=== PATIENT | female | born 1980 | race Caucasian/White ===

== ENCOUNTER 2022-06-24 05:32 | Emergency (ER) | payer OTHER, SELFPAY ==
--- NOTE | ~2022-06-24 | CT_ITS ---
EXAMINATION: CT abdomen pelvis wo con DATE: 06/24/2022 06:24 INDICATION: Nephrolithiasis presenting with flank pain TECHNIQUE: Computed tomography (CT) of the abdomen and pelvis was performed without intravenous contr ast. Automated exposure control and iterative reconstruction technique were employed. The dose-length product was 305.49 mGy-cm. COMPARISON: None FINDINGS: Lung bases are clear. Heart size is normal. No pericardial or pleural effusion. Liver, gallbladder, s pleen, pancreas, bilateral adrenal glands and left kidney are normal. There 3 stones in the left kidn ey measuring up to 3 mm. There is also mild to moderate right hydroureteronephrosis 2 there are coupl e T2-3 millimeter calcifications the expected location of the distalmost right ureter one of which li koko represents the obstructing stone. The other likely represents one of a few phleboliths in the ri ght hemipelvis. Bladder is normal. Retroverted uterus and bilateral adnexa are unremarkable. Small am ount of likely physiologic free fluid in the cul-de-sac. No pathologically enlarged abdominal or pelv ic lymphadenopathy. Bones are unremarkable. IMPRESSION: 1. Right nephrolithiasis with 2-3 mm obstructing stone at the distalmost right ureter with mild to mo derate right hydroureteronephrosis. Reviewed, dictated and finalized at location A. IMPRESSION: 1. Right nephrolithiasis with 2-3 mm obstructing stone at the distalmost right ureter with mild to moderate right hydroureteronephrosis.
[2022-06-24 05:39] VITALS: BP 132/84; PULSE 90; RESP 18; O2SAT 100
[2022-06-24 05:52] LABS: Basophils Percent Auto 0.7 % (0.2-1.2); Eosinophils Absolute Auto 0.2 K/mm3 (0-0.3); Hematocrit 43.3 % (37.0-47.0); Hemoglobin 14.3 g/dL (12.0-15.0); Immature Granulocyte Absolute 0.01 K/mm3 (0.00-0.031); Immature Granulocyte Percent A 0.2 % (0-0.5); Lymphocytes Absolute Auto 1.86 K/mm3 (0.9-3.2); Lymphocytes Percent Auto 33.3 % (18.3-44.2); Mean Corpuscular Hemoglobin 29.1 pg (26-34); Mean Corpuscular Volume 88.2 fl (80-100); Mean Platelet Volume 10.6 fl (7.4-10.4); Monocytes Absolute Auto 0.5 K/mm3 (0.1-0.6); Monocytes Percent Auto 9.7 % (2.6-8.5); Neutrophils Percent Auto 53.1 % (45.5-73.1); Platelet Count Result 224 k/mm3 (150-375); Red Blood Count 4.91 M/mm3 (4.2-5.4); Red Cell Distribution Width 13.2 % (11.5-14.5); White Blood Count 5.6 K/mm3 (4.5-10.0)
[2022-06-24 05:56] LABS: Appearance Urine Clear (Clear); Bilirubin Urine Negative (Negative); Blood Urine 1+ (Negative); Color Urine Yellow (Yellow); Glucose Urine UA Negative (Negative); Ketones Urine Negative (Negative); Leukocyte Esterase Ur Negative LEU/UL (Negative); Nitrate Urine Negative (Negative); Protein Urine Negative (Negative); Urobilinogen Urine 0.2 mg/dL (<2.0)
[2022-06-24] MEDS: ONDANSETRON INJ 4 MG/2 ML VIAL IV PUSH (05:58)
[2022-06-24] MEDS: SODIUM CHLORIDE 0.9% IV 1,000 ML 999 ML IV CONT (05:58)
[2022-06-24] MEDS: HYDROmorphone HCL INJ (*CRX) 1 MG/ML SYR IV PUSH (05:59)
[2022-06-24 06:01] LABS: Alanine Aminotransferase 17 U/L (6-35); Albumin Level 4.6 g/dL (3.5-5.1); Alkaline Phosphatase 37 U/L (38-126); Anion Gap 12 mmol/L (8-16); Aspartate Amino Transferase 18 U/L (14-36); Bilirubin,Total 0.3 mg/dL (0.2-1.3); Blood Urea Nitrogen 15 mg/dL (7-17); Calcium 9.2 mg/dL (8.4-10.2); Carbon Dioxide 24 mmol/L (22-30); Chloride 103 mmol/L (98-107); Estimated CRCL calculation 73 ml/min; Estimated Glomerular Filt Rate > 60; Glucose 124 mg/dL (65-110); Sodium 139 mmol/L (137-145)
[2022-06-24 06:02] LABS: Bacteria Urine Trace /hpf; Mucus Urine Rare /lpf; RBC Urine 21-50 /hpf (0-2); Squamous Epithelial Cell Urine Rare /hpf (Few); WBC Urine 0-3 /hpf
[2022-06-24 06:09] LABS: Add Urine Microscopic? YES
--- NOTE | 2022-06-24 06:11 | ED.GENADULT ---
HPI - General Adult General Chief complaint: Urogenital-Female Stated complaint: Kidney stone Time Seen by Provider: 06/24/22 05:49 History of Present Illness HPI narrative: Patient a 42-year-old female who presents the emergency department with chief complaint of flank pain. Patient reports she has history of kidney stones and recently passed 2 stones. Patient states that tonight she suddenly started having pain in her flank reports that she is not able to get comfortable in any position reports she took a Flomax and has not had improvement. Related Data Allergies Allergy/AdvReac Type Severity Reaction Status Date / Time promethazine [From Phenergan] Allergy Unknown Verified 06/24/22 05:39 Review of Systems Review of Systems: A 10 system review of systems was completed on the patient and is negative except for what is stated in the HPI. Nursing and ancillary documentation was reviewed. Exam Narrative: GENERAL: Well-appearing, well-nourished, and in acute pain distress. HEAD: Normocephalic, atraumatic. EYES: PERRLA and EOMI. ENT: Nares clear, no rhinorrhea or epistaxis. Mucous membranes moist. NECK: Supple. CHEST: Clear to auscultation. No respiratory distress. HEART: Regular rate and rhythm. No murmur heard. Normal peripheral pulses. ABDOMEN: Soft, nontender, nondistended, normal active bowel sounds. EXTREMITIES: Normal range of motion. No edema. SKIN: Warm, dry, no rash. NEURO: No focal deficits. Alert and oriented x3. PSYCH: Normal mood and affect. Course Vital Signs Vital signs: Vital Signs Pulse Rate 90 06/24/22 05:39 Respiratory Rate 18 06/24/22 05:39 Blood Pressure 132/84 06/24/22 05:39 Pulse Oximetry 100 06/24/22 05:39 Pulse Rate 90 06/24/22 05:39 Respiratory Rate 18 06/24/22 05:39 Blood Pressure 132/84 06/24/22 05:39 Pulse Oximetry 100 06/24/22 05:39 Medical Decision Making Vital Signs Vital Signs: Vital Signs Pulse Rate 90 06/24/22 05:39 Respiratory Rate 18 06/24/22 05:39 Blood Pressure 132/84 06/24/22 05:39 Pulse Oximetry 100 06/24/22 05:39 Pulse Rate 90 06/24/22 05:39 Respiratory Rate 18 06/24/22 05:39 Blood Pressure 132/84 06/24/22 05:39 Pulse Oximetry 100 06/24/22 05:39 Lab Data Result diagrams: 06/24/22 05:44 06/24/22 05:44 Labs: Lab Results 06/24/22 06/24/22 06/24/22 Range/Units 05:44 05:44 05:44 WBC 5.6 (4.5-10.0) K/mm3 RBC 4.91 (4.2-5.4) M/mm3 Hgb 14.3 (12.0-15.0) g/dL Hct 43.3 (37.0-47.0) % MCV 88.2 (80-100) fl MCH 29.1 (26-34) pg MCHC 33.0 (32-36) g/dl RDW 13.2 (11.5-14.5) % Plt Count 224 (150-375) k/mm3 MPV 10.6 H (7.4-10.4) fl Immature Gran % (Auto) 0.2 (0-0.5) % Neut % (Auto) 53.1 (45.5-73.1) % Lymph % (Auto) 33.3 (18.3-44.2) % Victoria % (Auto) 9.7 H (2.6-8.5) % Eos % (Auto) 3.0 (0-4.4) % Baso % (Auto) 0.7 (0.2-1.2) % Lymph # (Auto) 1.86 (0.9-3.2) K/mm3 Victoria # (Auto) 0.5 (0.1-0.6) K/mm3 Eos # (Auto) 0.2 (0-0.3) K/mm3 Baso # (Auto) 0.0 (0.0-0.1) K/mm3 Abs Immat Gran (auto) 0.01 (0.00-0.031) K/mm3 Absolute Neuts (auto) 3.0 (1.3-6.7) K/mm3 Absolute Nucleated RBC 0.0 (0.0-0.012) K/mm3 Nucleated RBC % 0.0 (0.0-0.2) % Sodium 139 (137-145) mmol/L Potassium 4.0 (3.4-5.0) mmol/L Chloride 103 (98-107) mmol/L Carbon Dioxide 24 (22-30) mmol/L Anion Gap 12 (8-16) mmol/L BUN 15 (7-17) mg/dL Creatinine 0.80 (0.7-1.0) mg/dL Estim Creat Clear Calc 73 ml/min Estimated GFR > 60 (59 - ) Glucose 124 H (65-110) mg/dL Calcium 9.2 (8.4-10.2) mg/dL Total Bilirubin 0.3 (0.2-1.3) mg/dL AST 18 (14-36) U/L ALT 17 (6-35) U/L Alkaline Phosphatase 37 L (38-126) U/L Total Protein 8.0 (6.3-8.2) g/dL Albumin 4.6 (3.5-5.1) g/dL Urine Color Yellow (Yellow) Urine Appearance Clear (Clear)
[2022-06-24 07:21] VITALS: BP 111/61; PULSE 74; RESP 16; O2SAT 99
--- NOTE | 2022-06-24 07:24 | PC.NURSE ---
ALFREDO Nieto has no questions on report at this time.
== END 2022-06-24 07:32 | disposition home or self-care (01) ==
PROVIDERS: Emergency Provider Emergency Medicine; PCP Family Medicine
DX: N13.2 Hydronephrosis with renal and ureteral calculous obstruction (principal)
CPT/HCPCS: 36415; 74176; 80053; 81001; 81025; 85025; 96361; 96374; 96375; 99284; J1170; J2405; J7030

== ENCOUNTER 2022-07-11 10:31 | Outpatient (CLI) | payer OTHER, SELFPAY ==
--- NOTE | ~2022-07-11 | XR_ITS ---
EXAM: XR abdomen/kub 1V DATE: 07/11/2022 10:55 HISTORY: BILATERAL KIDNEY STONES FU . COMPARISON: CT abdomen and pelvis 06/24/2022. FINDINGS: Normal bowel gas pattern. No organomegaly. Stable right upper pole nephrolith. Right lower pole stone in the distal right ureteral stone are not confidently visualized. Pelvic phleboliths. Re gional bones and soft tissues normal for age. IMPRESSION: Distal right ureteral stone is not confidently visualized radiographically, and may have passed or be obscured by summation artifact. Right nephrolithiasis. Reviewed, dictated and finalized at location K. IMPRESSION: Distal right ureteral stone is not confidently visualized radiograp hically, and may have passed or be obscured by summation artifact. Right nephro lithiasis.
== END 2022-07-11 10:32 | disposition home or self-care (01) ==
PROVIDERS: PCP Family Medicine; Visit Provider Urology
DX: N20.0 Calculus of kidney (principal)
CPT/HCPCS: 74018

== ENCOUNTER 2024-12-30 08:21 | Outpatient (CLI) | payer OTHER, SELFPAY ==
--- NOTE | ~2024-12-30 | XR_ITS ---
XR hip RT 2V w AP pelvis Ordering provider: Rohit Mckeon MD History: . M25.551 - Pain in right hip . Comparison: None. FINDINGS: BONES: No acute fracture or dislocation. HIP JOINT SPACES: Normal. SACROILIAC JOINT SPACES/LUMBAR SPINE: The sacroiliac joint spaces are normal. Normal visualized lower lumbar spine. PUBIC SYMPHYSIS: Normal. SOFT TISSUES: Normal. IMPRESSION: No acute osseous abnormality pelvis and right hip. Reviewed, dictated and finalized at location A.
== END 2024-12-30 08:22 | disposition home or self-care (01) ==
LOC: MICIMG 08:22
PROVIDERS: PCP Family Medicine; Visit Provider Family Medicine
DX: M25.551 Pain in right hip (principal)
CPT/HCPCS: 73502

== ENCOUNTER 2025-02-11 11:00 | Outpatient (CLI) | payer OTHER, SELFPAY ==
[2025-02-11 11:38] LABS: Basophils Percent Auto 0.6 % (0.2-1.2); Eosinophils Absolute Auto 0.1 K/mm3 (0-0.3); Eosinophils Percent Auto 1.2 % (0-4.4); Immature Granulocyte Absolute 0.02 K/mm3 (0.00-0.031); Immature Granulocyte Percent A 0.3 % (0-0.5); Lymphocytes Absolute Auto 1.34 K/mm3 (0.9-3.2); Lymphocytes Percent Auto 20.2 % (18.3-44.2); Mean Corpuscular HGB Conc 31.7 g/dl (32-36); Mean Corpuscular Hemoglobin 28.1 pg (26-34); Mean Corpuscular Volume 88.7 fl (80-100); Mean Platelet Volume 10.7 fl (7.4-10.4); Monocytes Absolute Auto 0.5 K/mm3 (0.1-0.6); Neutrophils Absolute Auto 4.6 K/mm3 (1.3-6.7); Neutrophils Percent Auto 69.7 % (45.5-73.1); Platelet Count Result 229 k/mm3 (150-375); Red Blood Count 4.62 M/mm3 (4.2-5.4); Red Cell Distribution Width 13.5 % (11.5-14.5); White Blood Count 6.6 K/mm3 (4.5-10.0)
[2025-02-11 11:47] LABS: Hemoglobin A1C 5.1 % (<5.7)
[2025-02-11 11:53] LABS: Alanine Aminotransferase 18 U/L (6-35); Albumin Level 4.3 g/dL (3.5-5.1); Alkaline Phosphatase 43 U/L (38-126); Anion Gap 7 mmol/L (4-12); Aspartate Amino Transferase 22 U/L (14-36); Bilirubin,Total 0.4 mg/dL (0.2-1.3); Blood Urea Nitrogen 26 mg/dL (7-17); Calcium 9.4 mg/dL (8.4-10.2); Carbon Dioxide 29 mmol/L (22-30); Chloride 100 mmol/L (98-107); Cholesterol 191 mg/dL (0-200); Estimated Glomerular Filt Rate > 60; Glucose 133 mg/dL (65-110); HDL Direct 80 mg/dL; Potassium 4.3 mmol/L (3.4-5.0); Sodium 136 mmol/L (137-145); Triglycerides 45 mg/dL (<150)
--- OUTSIDE RECORDS SUMMARY | 2025-02-11 11:53 | XMS_ITS | Continuity of Care Document ---
Author Organization [facility] e Address [address] [place] [address] Phone Care Team Providers Care Primary School Teacher Name Role Phone Cherelle RANDALL, Lucien Unavailable Unavailable Allergies, Adverse Reactions, Alerts Substance Reaction Status Criticality No Known allergies Medications Medication Instructions Dosage Effective Dates (start - stop) Status Comments Visine 0.05 % Eye Drops PRN - Ac tive Vigamox 0.5 % Eye Drops 1gtt OS Q1H - Active Procedures Procedure Date Offic/outpt E&m Estab Minor 10 11 Offic/outpt E&m Estab Minor 10 11 New Patient; Level 2 Advance Directives Directive Yes / No Effective Date File Name No Information Encounters Encounter Description Practice Location Reason(s) For Visit Diagnoses Date Provider Providers Copied on Encounter [facility], [address], [place], [place], [id number], tel:[phone] [facility] No Information 1 Cherelle Mcgraw. [address], [place], [place], [id number] , [place]. tel:[phone] Offic/outpt E&m Estab Minor 10 [facility], [address], [place], [place], [id number], tel:[phone] [facility] corneal ulcer OS (chief complaint) Marginal Corneal Ulcer Aug-0 1 Ju[address] Muro. [address], [place], [place], [id number] , [place]. tel: [phone] Offic/outpt E&m Estab Minor 10 [facility], [address], [place], [place], [id number], tel:[phone] [facility] f/u on corneal ulcer OS (chief complaint) Marginal Corneal Ulcer Oct-2 1 Juventino Muro. [address], [place], [place], [id number] , [place]. tel: [phone] New Patient; Level 2 [facility], [address], [place], [place], [id number], [place] tel:[phone] [facility] scratchiness (chief complaint) Marginal Corneal Ulcer Oct-2 1 Juventino Muro. [address], [place], [place], [id number] , [place]. tel: [phone] Family History Family Member Type Diagnosis Age At Onset Problem (finding) Family history of Heart Disease Problem (finding) Family history of Diabe justino mellitus Payers Payer name Insurance type Covered constitution party ID Authoriza tion(s) No Information Social History Type Description Quantity Date Captured Comments Sex Female Smoking Status No Information Chief Complaint And Reason For Visit No Information Reason For Referral Reason For Referral No Information History Of Present Illness Encounter Date Complaint History Of Prese nt Illness No Information Functional Status Date Functional Assessmen t No Information Instructions Date Instruction Additional Infor mation - Return in PRN any pain, reness, or dcrease Va. KCP Related to Corneal Ulcer Corneal Ulcer, OS - resolved - stop gtts., can resume CL wear with a new pair in 3 days Related to Corneal Ulcer Corneal Ulcer, OS - taper Vigamox Q1H throughout day and Q2H through the night and over the weekend. Will discuss CL wear nexr visit if K has improved. Related to Corneal Ulcer - Return in 3-4 days for Follow-up Visit, with Dr. Jina Jauregui /scribed by [facility] Related to Corneal Ulcer - Return in 1 day fo r Follow-up Visit, with Dr. Jina Jauregui /scribed by . Related to Corneal Ulcer Corneal Ulcer, OS - Pt will start Vigamox OS Q1H around the clock. No CL wear. Zymaxid gtt placed in office today. Related to Corneal Ulcer Assessments Type Assessment Date No Information Patient Care Teams Name Effective Dates (start - stop) Status Members No Information
--- OUTSIDE RECORDS SUMMARY | 2025-02-11 11:53 | XMS_ITS | Clinical Summary ---
Author Organization [facility] Address [address] [place] [id number] Care Team Providers Care Supervisor Treating And Pumping Name Role Phone Unavailable Primary Care Provider Unavailabl e Social History Tobacco Use Types Packs/Day Years Used Date Smoking Tobacco: Never Assessed Comments Unknown Sex and Gender Information Value Date Recorded Sex Assigned at Not on file Legal Sex Female 6:31 PM CDT Gender Identity Not on file Sexual Orientation Not on file Plan of Treatment Health Maintenance Due Date Last Done Comments Cervical Cancer Screening Pa p Smear (Age 30 to 64) Every 3 Years 1982 Annual Physical 1985 Hepatitis C 2000 DTaP, Tdap and Td Vaccines ( 1 - Tdap) 2001 Hepatitis B Vaccines (1 of 3 - 19+ 3-dose series) 2001 Cervical Cancer Screening Pa p with HPV Testing (Age 30 to 64) Every 5 Years 2012 Cervical Cancer Screening with HPV 2012 Mammogram Screening 2022 COVID-19 Vaccine (2023-2 5 season) 2024 HPV Vaccines Aged Out No longer eligi ble based on patient's age to complete this topic Meningococcal B Vaccine Aged Out No l onger eligible based on patient's age to complete this topic Meningococcal Vaccine Aged Out No jim valerio eligible based on patient's age to complete this topic Pneumococcal Vaccine: Pediat rics (0 to 5 Years) and At-Risk Patients (6 to 49 Years) Aged Out No longer eligible b ased on patient's age to complete this topic RSV Immunizations Under 20 Months Aged Out No longer eligible based on patient's age to complete this topic
--- OUTSIDE RECORDS SUMMARY | 2025-02-11 11:53 | XMS_ITS | Clinical Summary ---
Author Organization [facility] Address [address] [place] [address] Care Team Providers Care Setter Machine Name Role Phone No, Physician Primary Care Provider [phone] Allergies No known active allergies Medications No known medications Active Problems No known active problems Family History Medical History Relation Name Comments Breast cancer Neg Hx Social History Tobacco Use Types Packs/Day Years Used Date Smoking Tobacco: Never Alcohol Use Standard Drinks/Week Comments Not Currently 0 (1 standard drink = 0.6 oz pur e alcohol) Comments No Sex and Gender Information Value Date Recorded Sex Assigned at Not on file 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 Gender Identity Not on file Sexual Orientation Not on file Obstetrics History Para Term AB IAB SAB Ectopic Multiple Livin g Live Births 5 5 5 5 Date Outcome GA Total Labor Labor/2nd/3rd Weight Sex Type Anes PTL Lani A1 A5 Name Clin Term Term Term Term Term Last Filed Vital Signs Vital Sign Reading Time Taken Comments Blood Pressure 104/72 05/13/2020 2:29 PM CDT Pulse - - Temperature - - Respiratory Rate - - Oxygen Saturation - - Inhaled Oxygen Concentration - - Weight 62.8 kg (138 lb 6.4 oz) 05/13/2020 2:29 P M CDT Height 165.1 cm (5' 5 ) 05/13/2020 2:29 PM CDT Body Mass Index 23.03 05/13/2020 2:29 PM CDT Plan of Treatment Not on file Insurance [employer]NA [facility] Care Teams Setter Machine Relationship Specialty Start Date End Date No, Physician PCP - General 03/03/20
--- OUTSIDE RECORDS SUMMARY | 2025-02-11 11:53 | XMS_ITS | Referral Summary ---
Author Organization [facility] Address [address] [place] [address] Care Team Providers Care It Lead Name Role Phone No, Physician Primary Care Provider [phone] Allergies No known active allergies Medications No known medications Active Problems No known active problems Social History Tobacco Use Types Packs/Day Years Used Date Smoking Tobacco: Never Alcohol Use Standard Drinks/Week Comments Not Currently 0 (1 standard drink = 0.6 oz pur e alcohol) Comments No Sex and Gender Information Value Date Recorded Sex Assigned at Not on file 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
[2025-02-11 12:04] LABS: LDL Cholesterol Direct 85 mg/dL
== END 2025-02-11 11:01 | disposition home or self-care (01) ==
LOC: ANHLAB 11:02
PROVIDERS: PCP Family Medicine; Visit Provider Family Medicine
DX: R73.9 Hyperglycemia, unspecified (principal); R53.83 Other fatigue; R51.9 Headache, unspecified; Z00.00 Encounter for general adult medical examination without abnormal findings
CPT/HCPCS: 36415; 80053; 80061; 83036; 85025